=== PATIENT | male | born 1980 | race Caucasian/White ===

== ENCOUNTER → 2017-04-03 | Outpatient (REF) ==
--- NOTE | 2017-04-03 14:26 | REP ---
Cervical spine two views AP and lateral projections: There are no comparisons. Vertebral body heights and alignment are normal. The prevertebral soft tissues are normal. The facets are normally aligned. There is mild disc space narrowing at C5-6 compatible with mild degenerative disc disease. The remainder of the disc spaces are unremarkable. Impression: CT 12/23 degenerative disc disease. Otherwise, negative cervical spine. Signed by Pasquale Castro MD 04/03/2017 02:17 P
--- NOTE | 2017-04-03 14:27 | REP ---
Right hand four views : There is no fracture or dislocation. Mineralization and joint spaces are normal. There are no calcifications or foreign bodies. Impression: Negative right hand . Signed by Pasquale Castro MD 04/03/2017 02:18 P
== END ==
LOC: M SMT 13:26
PROVIDERS: ATTEND Internal Medicine
DX: Z02.9 Encounter for administrative examinations, unspecified (principal)